=== PATIENT | male | born 1975 | race African-American/Black ===

== ENCOUNTER 2016-08-24 00:19 | Emergency (ER) | payer OTHER ==
[~2016-08-24] VITALS: Ht 175.3 cm; Wt 79.4 kg
[~2016-08-24 00:19] MED LIST: ASPI-482 PO; ATOR40TA59 PO; INSU100I13 SQ; INSU100I17 SQ; INSULIN GLARGINE; LISI10TA2 PO; Novolog
[2016-08-24 01:12] VITALS: BP 157/107
[2016-08-24] MEDS ORDERED: ACET325T9 PO (01:27)
[2016-08-24] MEDS ORDERED: OSEL75CA PO (01:27)
--- NOTE | 2016-08-24 01:28 | PHYS DOC ---
Past Medical History Past Medical History: Diabetes-Type II, High Cholesterol, Hypertension Past Surgical History: Other Additional Past Surgical Histo: RIGHT kneeSX, Alcohol Use: Occasionally Drug Use: None Adult General Chief Complaint Chief Complaint: COUGH HPI HPI 41-year-old male presenting to the emergency department today with cough fevers chills and myalgias with recent flu exposure. He reports cough starting greater than 3 weeks ago. It is dry nonproductive. His fever started approximately 3 or 4 days ago. Review of systems is negative for abdominal pain nausea vomiting. Positive for cough fevers and chills. All other review of systems is negative unless otherwise noted in history of present illness. Review of Systems Review of Systems SEE ABOVE. Allergies Allergies Allergies Coded Allergies Type Severity Reaction Last Updated Verified No Known Drug Allergies 06/17/13 No Physical Exam Physical Exam Constitutional: Well developed, well nourished, no acute distress, non-toxic appearance. HENT: Normocephalic, atraumatic, bilateral external ears normal, oropharynx moist, no oral exudates, nose normal. [] Eyes: PERRLA, EOMI, conjunctiva normal, no discharge. Neck: Normal range of motion, no tenderness, supple, no stridor. [] Cardiovascular:Heart rate regular rhythm, no murmur Lungs & Thorax: Bilateral breath sounds clear to auscultation [] Abdomen: Bowel sounds normal, soft, no tenderness, no masses, no pulsatile masses. Skin: Warm, dry, no erythema, no rash. [] Back: No tenderness, no CVA tenderness. Extremities: No tenderness, no cyanosis, no clubbing, ROM intact, no edema. [] Neurologic: Alert and oriented X 3, normal motor function, normal sensory function, no focal deficits noted. [] Psychologic: Affect normal, judgement normal, mood normal. [] Current Patient Data Vital Signs Vital Signs Date Time Temp Pulse Resp B/P Pulse Ox O2 Delivery O2 Flow Rate FiO2 08/24/16 01:12 98.3 63 18 96 Room Air 98.3 EKG EKG [] Radiology/Procedures Radiology/Procedures [] Course & Med Decision Making Course & Med Decision Making Pertinent Labs and Imaging studies reviewed. (See chart for details) [] 41-year-old male presenting to the emergency department with signs and symptoms suggestive of influenza. Afebrile here in the emergency department. Otherwise vital signs unremarkable. Patient was treated with ibuprofen and Tamiflu for presumptive flu and discharged home to follow up with PCP over the next 2-3 days. Dragon Disclaimer Dragon Disclaimer This electronic medical record was generated, in whole or in part, using a voice recognition dictation system. Departure Departure Impression: Primary Impression: Influenza Disposition: HOME, SELF-CARE Condition: STABLE Referrals: DANIEL CHE-Germán (PCP) Patient Instructions: Influenza, Adult Additional Instructions: Thank you for allowing us to participate in your care today. Followup with your primary care physician in 3 days if your symptoms do not improve. If you do not have a primary care provider you can ask for a list of our primary care providers. Return to the emergency department you have any new or concerning findings. This should be evaluated by the primary care physician and any necessary consulting services for continued management within a few days after discharge. Return to emergency room if you have any new or concerning symptoms including but not limited to fever, chills, nausea, vomiting, intractable pain, any new rashes, chest pain, shortness of air, uncontrolled bleeding, difficulty breathing, and/or vision loss. Scripts Acetaminophen (Tylenol)325 Mg [id number] Mg PO PRN Q8HRS PRN PAIN #20 Prov:BRENDA RICHARD MD 08/24/16 Oseltamivir Phosphate (Tamiflu)75 Mg Capsule1 Cap PO BID #10 CAP Prov:BRENDA RICHARD MD 08/24/16 BRENDA RICHARD MD Aug 24, 2016 01:27
== END 2016-08-24 01:53 | disposition home or self-care (01) ==
LOC: ER 00:19
DX: J11.1 Influenza due to unidentified influenza virus with other respiratory manifestations (principal); E11.9 Type 2 diabetes mellitus without complications; E78.00 Pure hypercholesterolemia, unspecified; I10 Essential (primary) hypertension
CPT/HCPCS: 99283

== ENCOUNTER 2019-08-01 18:34 | Emergency (ER) | payer OTHER ==
[~2019-08-01] VITALS: Ht 175.3 cm; Wt 86.3 kg
[~2019-08-01 18:34] MED LIST changes: +ACET325T9 PO; +OSEL75CA PO
[2019-08-01 19:40] VITALS: BP 118/72
--- NOTE | 2019-08-01 22:11 | RAD ---
Examination: 2 views of the left shoulder HISTORY: History of left shoulder pain COMPARISON: None available FINDINGS: The humerus head is within the glenoid. Mild degenerative changes identified in the acromioclavicular joint. There is no acute fracture or dislocation identified. IMPRESSION: No acute osseous findings. Electronically signed by: Luisito Frost MD (08/01/2019 10:09 PM) [facility]
--- NOTE | 2019-08-01 22:17 | PHYS DOC ---
Past Medical History Past Medical History: Diabetes-Type II, High Cholesterol, Hypertension Past Surgical History: Other Additional Past Surgical Histo: RIGHT kneeSX, Alcohol Use: Occasionally Drug Use: None Adult General Chief Complaint Chief Complaint: SHOULDER INJURY HPI HPI Patient is a 44 year old male who presents with patient states he awoke with left shoulder pain 2 weeks ago. States his continued to hurt him. Patient states there is a lot of tightness in the shoulder and up into the trapezius muscle. Patient has not been taking any medications to help this pain. Review of Systems Review of Systems Musculoskeletal: Denies back pain. Left shoulder joint pain [] All other systems were reviewed and found to be within normal limits, except as documented in this note. Allergies Allergies Allergies Coded Allergies Type Severity Reaction Last Updated Verified No Known Drug Allergies 06/17/13 No Physical Exam Physical Exam Constitutional: Well developed, well nourished, no acute distress, non-toxic appearance. [] HENT: Normocephalic, atraumatic, bilateral external ears normal, oropharynx moist, no oral exudates, nose normal. [] Eyes: PERRLA, EOMI, conjunctiva normal, no discharge. [] Neck: Normal range of motion, no tenderness, supple, no stridor. [] Cardiovascular:Heart rate regular rhythm, no murmur [] Lungs & Thorax: Bilateral breath sounds clear to auscultation [] Abdomen: Bowel sounds normal, soft, no tenderness, no masses, no pulsatile masses. [] Skin: Warm, dry, no erythema, no rash. [] Back: No tenderness, no CVA tenderness. [] Extremities: Left trapezius tenderness and tightness, no cyanosis, no clubbing, Left shoulder ROM not intact, no edema. [] Neurologic: Alert and oriented X 3, normal motor function, normal sensory function, no focal deficits noted. [] Psychologic: Affect normal, judgement normal, mood normal. [] Current Patient Data Vital Signs Vital Signs Date Time Temp Pulse Resp B/P (MAP) Pulse Ox O2 Delivery O2 Flow Rate FiO2 08/01/19 19:40 98.1 68 18 118/72 (87) 97 Room Air 98.1 EKG EKG [] Radiology/Procedures Radiology/Procedures [] Impressions: [facility] [address] [place] [address] IMAGING REPORT Signed PATIENT: KATH MAYEN ACCOUNT: [id number] : 1975 LOCATION: ER AGE: 44 SEX: M EXAM STATUS: REG ER ORD. PHYSICIAN: OTIS HART APRN REASON: left shoulder pain x3 weeks PROCEDURE: SHOULDER 2+V LEFT Examination: 2 views of the left shoulder HISTORY: History of left shoulder pain COMPARISON: None available FINDINGS: The humerus head is within the glenoid. Mild degenerative changes identified in the acromioclavicular joint. There is no acute fracture or dislocation identified. IMPRESSION: No acute osseous findings. Electronically signed by: Luisito Frost MD (08/01/2019 10:09 PM) [facility] DICTATED and SIGNED BY: LUISITO FROST MD DATE: 08/01/192208 Course & Med Decision Making Course & Med Decision Making No swelling, deformity, bruising seen on the left shoulder. Patient has limited range of motion in the shoulder. Shoulder x-ray shows no acute findings. The trapizius muscle feels very tight when trying to rotate the shoulder. Range of motion is limited due to pain and tightness of the muscle. Skin pink warm and dry. Cap refill less than 3 seconds. Radial pulses strong. Patient can wiggle all fingers. Denies any numbness or tingling. Patient states that he does not currently have a job and does not do anything out of the ordinary. He does not remember injuring the shoulder. Patient is given a prescription for ibuprofen and a muscle relaxer. Patient is told to follow-up with primary care provider and try using a heating pad. Dragon Disclaimer Dragon Disclaimer This electronic medical record was generated, in whole or in part, using a voice recognition dictation system. Departure Departure Impression: Primary Impression: Shoulder pain, left Disposition: 01 HOME, SELF-CARE Condition: STABLE Referrals: DANIEL CHE [facility] (PCP) Patient Instructions: Muscle Strain, [id number] Additional Instructions: FOLLOW UP WITH PRIMARY CARE PROVIDER. TAKE MEDICATION PRESCRIBED. USE IBUPROFEN AND THE MUSCLE RELAXER, ALSO TRY A HEATING PAD. Scripts Orphenadrine Citrate (ORPHENADRINE CITRATE) 100 Mg Tablet.er 1 TAB PO BID, #14 TAB Prov: OTIS HART MOLECULAR BIOLOGY DIRECTOR 08/01/19 Ibuprofen (IBUPROFEN) 600 Mg Tablet 600 MG PO PRN Q6HRS PRN for INFLAMMATION, #20 TAB Prov: OTIS HART MOLECULAR BIOLOGY DIRECTOR 08/01/19 Problem Qualifiers Primary Impression: Shoulder pain, left Chronicity: chronic Qualified Codes: M25.512 - Pain in left shoulder; G89 .29 - Other chronic pain OTIS HART MOLECULAR BIOLOGY DIRECTOR Aug 01, 2019 22:17
[2019-08-01] MEDS ORDERED: ORPH100T PO (22:43)
[2019-08-01] MEDS ORDERED: IBUP-1007 PO (22:43)
== END 2019-08-01 23:10 | disposition home or self-care (01) ==
LOC: ER 18:34
DX: M25.512 Pain in left shoulder (principal); G89.29 Other chronic pain; E78.00 Pure hypercholesterolemia, unspecified; E11.9 Type 2 diabetes mellitus without complications; I10 Essential (primary) hypertension
CPT/HCPCS: 73030; 99284